=== PATIENT | male | born 1950 | race Caucasian/White ===

== ENCOUNTER 2019-11-20 16:18 | Outpatient (CLI) | payer OTHER | END 2019-11-20 23:59 | disposition home or self-care (01) | LOC: LAB 16:18 | PROVIDERS: ATTEND Specialist | DX: Z01.812 Encounter for preprocedural laboratory examination (principal); Z20.828 Contact with and (suspected) exposure to other viral communicable diseases | CPT/HCPCS: 87426; C9803 ==

== ENCOUNTER 2019-11-25 05:49 | Day surgery (SDC) | payer OTHER ==
[~2019-11-25] VITALS: Ht 177.8 cm; Wt 74.8 kg
--- NOTE | 2019-11-25 07:00 | NUR ---
MS RN OPENING NOTES RECEIVED PT IN AWAKE IN BED AT THIS TIME. AOX4. NO SOB NOTED, NO S/S OF ANY ACUTE DISTRESS NOTED. NO C/O PAIN AT THIS TIME. RESPIRATIONS ARE EVEN AND UNLABORED WITH EQUAL RISE AND FALL IN CHEST. PT ABLE TO MAKE NEEDS KNOWN. IV ACCESS NOTED IN RIGHT FOREARM G# 20, PATENT, INTACT AND FLUSHING WELL. PT NOTED WITH CONTINUOS BLOOD SUGAR MONITOR ATTACHED ON HIS RIGHT LOWER ABDOMEN.FALL AND SAFETY PRECAUTION IN PLACE AND MAINTAINED AT ALL TIMES. BED IN LOWEST LOCKED POSITION, HOB ELEVATED, RAILS UP X 2, CALL LIGHT WITHIN REACH. WILL CONTINUE TO MONITOR
[2019-11-25 07:06] VITALS: BP 148/76
--- NOTE | 2019-11-25 07:45 | NUR ---
DAY SURGERY RN NOTES PATIENT CAME IN FOR DAY SURGERY. FOR LEFT SHOULDER ARTHROSCOPY, ROTATOR CUFF REPAIR. PATIENT IS ALERT ORIENTED X4, NO KNOWN ALLERGIES, NO SIGNS OF ACUTE CARDIAC OR RESPIRATORY DISTRESS NOTED. PATIENT IS TYPE 1 DIABETIC, WITH CONTINUOS BLOOD SUGAR MONITOR ATTACHED ON HIS RIGHT LOWER ABDOMEN. PERIPHERAL IV ACCESS INITIATED ON HIS RIGHT FOREARM G#20 INTACT AND PATENT. ADMISSION PROCESS INITIATED, SEEN AND EXAMINED BY DR. ALIDA MD PROCEDURE CONSENT SIGNED. ALL NEEDS ATTENDED. ENDORSED TO AM NURSE FOR CONTINUITY OF CARE.
--- NOTE | 2019-11-25 07:46 | NUR ---
RN NOTES AWAITING FOR [employer]. ENDORSED TO IMMACULATE,RN AM NURSE.
[2019-11-25 08:00] VITALS: BP 136/71
--- NOTE | 2019-11-25 08:00 | NUR ---
PT TRANSPORTED BY BED FROM UNIT AT THIS TIME FOR LEFT SHOULDER ARTHROSCOPY, ROTATOR CUFF REPAIR. WILL CONTINUE WITH PLAN OF CARE
[2019-11-25] MEDS ORDERED: FENTANYL PF 100MCG/2ML AMPUL ONE ×2 (09:28→09:29)
[2019-11-25] MEDS ORDERED: MIDAZOLAM HCL 2 MG/2ML VIAL ONE (09:28)
[2019-11-25] MEDS ORDERED: FAMOTIDINE/PF INJ 20 MG/2 ML VIAL IV ONE (09:29)
[2019-11-25] MEDS ORDERED: ROCURONIUM BROMIDE 50 MG/5 ML ONE (09:29)
[2019-11-25] MEDS ORDERED: BUPIVACAINE 0.25% 75 MG/30 ML VIAL ONE (09:30)
--- NOTE | 2019-11-25 12:00 | NUR ---
PT TRANSPORTED BY BED BACK TO UNIT AT THIS TIME FROM LEFT SHOULDER ARTHROSCOPY, ROTATOR CUFF REPAIR. DRESSING ON SURGERY SITE, CLEAN AND DRY, SLING IN PLACE, POST SURGERY VITALS ARE BP 125/74, HR 74, RR 20, T 98.2, SPO2 97%. NO C/O PAIN AT THIS TIME. WILL CONTINUE WITH PLAN OF CARE AND CONTINUE TO MONITOR
[2019-11-25] MEDS ORDERED: HYDROCODONE/APAP 5/325MG TABLET PO PRN (13:30)
[2019-11-25] MEDS: HYDROCODONE/APAP 5/325MG TABLET PO PRN (13:55)
--- NOTE | 2019-11-25 13:56 | NUR ---
PT C/O OF LEFT SHOULDER ACHING PAIN OF 7/10. VS STABLE. NORCO 5-325MG PO Q6HRS ADMINISTERED AT THIS TIME, WILL CONTINUE TO MONITOR
--- NOTE | 2019-11-25 17:35 | NUR ---
MS CAT AND DOG BATHER NOTES PT D/C TO HOME AT THIS TIME. PT IN STABLE CONDITION. ALL CARE, NEEDS, TREATMENT AND MEDICATIONS ADMINISTERED ANTICIPATED PER ORDER. DISCHARGE INSTRUCTIONS PROVIDED AND PT VERBALIZED UNDERSTANDING. ALL BELONGING ACCOUNTED FOR AND SIGNED BY PATIENT. DISCHARGE INSTRUCTIONS HANDED TO PT. IV ACCESS IN RIGHT FORE ARM REMOVED, PRESSURE APPLIED, SECURE WITH GAUZE AND TAPE. NO BLEEDING OR SIGN OF INFILTRATION NOTED. PT TRANSPORTED TO [facility] BY [facility]AN MIGUEL [facility]. PT PICKED UP BY SON IN PRIVATE CARE
== END 2019-11-25 18:00 | disposition home or self-care (01) ==
LOC: DS 05:49 → UNDOADMIN 05:50 → MED 05:50 → UNDODISIN 17:50 → DS 18:00
PROVIDERS: ATTEND Specialist
DX: M75.102 Unspecified rotator cuff tear or rupture of left shoulder, not specified as traumatic (principal); M19.90 Unspecified osteoarthritis, unspecified site; M94.212 Chondromalacia, left shoulder; E11.9 Type 2 diabetes mellitus without complications; Z79.899 Other long term (current) drug therapy
CPT/HCPCS: 29827; 82962; 87081; A4217; A4565; C1713; J2250; J3010 ×2; J3490 ×2; G0378